=== PATIENT | female | born 1990 | race Caucasian/White ===

== ENCOUNTER → 2020-02-24 12:46 | Outpatient (CLI) | payer OTHER, SELFPAY ==
--- NOTE | ~2020-02-24 | US_ITS ---
EXAMINATION: US OB <= 14 weeks fetus DATE: 02/24/2020 13:14 INDICATION: Establish dating of during first trimester TECHNIQUE: Real-time pelvic ultrasound utilizing both a transvaginal and transabdominal probe was pe rformed. The interpreting radiologist was not present for the study. COMPARISON: None. FINDINGS: The uterus measures 11.0 x 5.4 x 7.6 cm. There is an intrauterine gestational sac. A yolk sac and fe austin pole are identified. The crown rump length measures 1.3 cm, which correlates with an estimated ge stational age of 7 weeks and 4 days. heart motion is identified measuring 161 beats per minute (bpm) by M-mode Doppler. The right ovary measures 2.7 x 2.3 x 3.1 cm. The left ovary measures 3.6 x 2.9 x 3.4 cm. 1.8 cm thick -walled centrally anechoic corpus luteum cyst in the left ovary. There is no free fluid in the pelvis . IMPRESSION: 1. Single living fetus with heart rate of 161 bpm. 2. Gestational age by ultrasound of 7 weeks 4 day(s) +/- 5 day(s) with ultrasound estimated date of delivery (CINDY) of 10/08/2020. Reviewed, dictated and finalized at location A. ITAL ADMITTING CLERK IMPRESSION: 1. Single living fetus with heart rate of 161 bpm. 2. Gestational age by ultrasound of 7 weeks 4 day(s) +/- 5 day(s) with ultraso und estimated date of delivery (CINDY) of 10/08/2020.
== END ==
PROVIDERS: Visit Provider Obstetrics & Gynecology Gynecology
DX: O26.841 Uterine size-date discrepancy, first trimester (principal); Z3A.01 Less than 8 weeks gestation of pregnancy
CPT/HCPCS: 76801

== ENCOUNTER → 2020-05-10 10:32 | Outpatient (CLI) | payer OTHER, SELFPAY ==
--- NOTE | ~2020-05-10 | US_ITS ---
US OB >= 14 weeks Fetus DATE: 05/10/2020 11:44 INDICATION: anatomy screen TECHNIQUE: Real-time imaging and Doppler analysis COMPARISON: 02/24/2020 obstetrical ultrasound examination FINDINGS: Live ricketts intrauterine gestation in vertex presentation. Posterior placenta, lower mar gin 5 cm above the internal os. Subjectively normal amount of amniotic fluid. cerebral ventricles are normal size. The cerebellum appears normal. Normal nuchal fold. N ormal upper lip. Normal spine. The diaphragm is intact. heart rate of 144 bpm. 4 ch cameron heart with normal outflow tracts. Fluid is demonstrated in the stomach and ur inary bladder. kidneys appear normal. Three-vessel cord with normal insertion at abdomina l wall. extremities are unremarkable. Biparietal diameter 4.36 cm; 19 weeks 1 day Head circumference 15.95 cm; 18 weeks 6 days Abdominal circumference 13.07 cm; 18 weeks 4 days Femur length 2.63 cm; 18 weeks 0 days Composite age by Edmonds formula on the current examination would be 18 weeks 5 days +/- 1 week 2 da ys with CINDY of 10/06/2020, which is close to the CINDY of 10/08/2020 from the 02/24/2020 obstetrical ultr asound examination. Estimated weight: 237.1 +/- 35.6 g Estimated weight-GP: 42.1% Head circumference/abdominal hull molder was 1.22, within normal range of 1.09-1.26 Femur length/head circumference 16.47, within normal range of 16.01-18.21. IMPRESSION: Normal anatomy screen and normal interval growth since 02/24/2020 Reviewed, dictated and finalized at Location A. Reviewed, dictated and finalized at location A. WINDING MACHINE OPERATOR IMPRESSION: Normal anatomy screen and normal interval growth since 2019
== END ==
PROVIDERS: Visit Provider Obstetrics & Gynecology Gynecology
DX: Z34.92 Encounter for supervision of normal pregnancy, unspecified, second trimester (principal); Z3A.18 18 weeks gestation of pregnancy
CPT/HCPCS: 76805

== ENCOUNTER 2020-07-11 19:52 | Observation (INO) | payer OTHER, SELFPAY ==
[2020-07-11] VITALS (16 sets, daily range): BP systolic 127–178; BP diastolic 79–110; PULSE 80–99; TEMP 36.6; BMI 25.4
--- NOTE | ~2020-07-11 | US_ITS ---
EXAMINATION: US OB follow up, US umbilical doppler DATE: 07/12/2020 08:04 INDICATION: Gestational hypertension. Assess growth and estimated weight at the junction of the second and third trimesters of . TECHNIQUE: Real-time ultrasound of the pelvis was performed. The interpreting radiologist was not pre sent for the study. COMPARISON: None. FINDINGS: There is a single living fetus in breech presentation. The placenta is posterior. heart rate i s 139 beats per minute (bpm). The amniotic fluid index is 11.4 cm, which is normal (5th%-95%: 9.5-22. 6 cm at 27 weeks estimated gestational age). The umbilical artery demonstrates a peak systolic and diastolic velocity ratio of 3.3 at the fetus, 1 .8 in the mid cord and 2.2 near the placenta with mean of 2.4 (5th%-95%: 2.4-4.8 at 27 weeks). The following biometric data were obtained: BPD: 6.9 cm -> 27 weeks 4 days Head circumference: 26.3 cm -> 28 weeks 4 days Abdominal circumference: 22.3 cm -> 26 weeks 5 days Femur length: 5.0 cm -> 26 weeks 6 days These measurements are concordant. Head circumference to abdominal circumference ratio: 1.18 (normal range 1.04-1.22). Estimated weight: 1016 g (+/-) 152 g. or 2 lbs. 4 oz. (+/-) 5 oz. IMPRESSION: 1. Single living fetus in breech presentation with heart rate of 139 bpm. 2. Normal amniotic fluid index of 11.4 cm. 3. Low normal mean umbilical arterial peak systolic to diastolic velocity ratio of 2.4. 4. Estimated weight is 23rd percentile by Hadlock criteria when 10/08/2020 is used as the estima donta date of delivery (CINDY). Please correlate with clinical information or earlier ultrasounds for mos t accurate CINDY. Reviewed, dictated and finalized at location A. IMPRESSION: 1. Single living fetus in breech presentation with heart rate of 139 bpm. 2. Normal amniotic fluid index of 11.4 cm. 3. Low normal mean umbilical arterial peak systolic to diastolic velocity ratio of 2.4. 4. Estimated weight is 23rd percentile by Hadlock criteria when 10/08/2020 is used as the estimated date of delivery (CINDY). Please correlate with clinica l information or earlier ultrasounds for most accurate CINDY.
[2020-07-11 14:59] LABS: Basophils Percent Auto 0.3 % (0.2-1.2); Eosinophils Absolute Auto 0.1 K/mm3 (0-0.3); Eosinophils Percent Auto 0.6 % (0-4.4); Hematocrit 35.1 % (37.0-47.0); Immature Granulocyte Absolute 0.09 K/mm3 (0.00-0.031); Immature Granulocyte Percent A 0.9 % (0-0.5); Lymphocytes Absolute Auto 1.38 K/mm3 (0.9-3.2); Lymphocytes Percent Auto 14.5 % (18.3-44.2); Mean Corpuscular HGB Conc 34.2 g/dl (32-36); Mean Corpuscular Hemoglobin 31.2 pg (26-34); Mean Corpuscular Volume 91.2 fl (80-100); Mean Platelet Volume 11.1 fl (7.4-10.4); Monocytes Absolute Auto 0.8 K/mm3 (0.1-0.6); Monocytes Percent Auto 8.4 % (2.6-8.5); Neutrophils Absolute Auto 7.2 K/mm3 (1.3-6.7); Neutrophils Percent Auto 75.3 % (45.5-73.1); Platelet Count Result 177 k/mm3 (150-375); Red Blood Count 3.85 M/mm3 (4.2-5.4); Red Cell Distribution Width 11.9 % (11.5-14.5); White Blood Count 9.5 K/mm3 (4.5-10.0)
[2020-07-11 15:01] LABS: Add Urine Microscopic? NO; Appearance Urine Clear (Clear); Bilirubin Urine Negative (Negative); Blood Urine Negative (Negative); Color Urine Straw (Yellow); Glucose Urine UA Negative (Negative); Ketones Urine Negative (Negative); Leukocyte Esterase Ur Negative LEU/UL (NEGATIVE); Nitrate Urine Negative (Negative); Protein Urine Negative (Negative); Urobilinogen Urine Negative mg/dL (<2.0)
[2020-07-11 15:11] LABS: Alanine Aminotransferase 28 U/L (4-35); Albumin Level 3.7 g/dL (3.5-5.1); Alkaline Phosphatase 95 U/L (38-126); Anion Gap 6 mmol/L (8-16); Aspartate Amino Transferase 30 U/L (14-36); Bilirubin,Total 0.3 mg/dL (0.2-1.3); Blood Urea Nitrogen 7 mg/dL (7-17); Calcium 8.9 mg/dL (8.4-10.2); Carbon Dioxide 26 mmol/L (22-30); Chloride 103 mmol/L (98-107); Estimated Glomerular Filt Rate > 60; Glucose 83 mg/dL (65-105); Potassium 3.2 mmol/L (3.4-5.0); Sodium 135 mmol/L (137-145); Uric Acid 3.3 mg/dL (2.5-7.5)
[2020-07-11 15:13] LABS: Creatinine Urine 20.8 mg/dL; Total Protein Urine Random 18 mg/dL; Ur Ttl Prot Creatinine Ratio 0.87 mg/mg (0-0.20)
[2020-07-11 15:14] LABS: Specific Grav Ur 1.004 (1.001-1.035)
--- NOTE | 2020-07-11 15:30 | PC.NURSE ---
Dr Edwards notifed of BP's and lab results, orders received.
[2020-07-11] MEDS: LABETALOL HCL 100 MG TABLET PO ×2 (15:40→17:16)
[2020-07-11] MEDS: LABETALOL HCL 100 MG TABLET 200 MG PO (21:28)
[2020-07-12 01:11] VITALS: BP 138/88; PULSE 77
[2020-07-12 03:00] VITALS: BP 142/97; PULSE 84
[2020-07-12 05:30] VITALS: PULSE 86
[2020-07-12] MEDS: LABETALOL HCL 100 MG TABLET 200 MG PO (05:30)
[2020-07-12 05:31] VITALS: BP 133/80; PULSE 86
[2020-07-12 07:19] VITALS: BP 131/87; PULSE 81
--- NOTE | 2020-07-12 07:38 | WPDOBADMIT ---
Obstetrics - Admit Note Admission Note: record reviewed. No pertinent additions to the history and/or any subsequent changes in the physical findings that are not consistent with the expected course of the were found. Additions to the history and/or subsequent changes in the physical findings follow. Here from office yesterday with elevated BP at 28 wks. Headache is her usual migraine. No PIH Sx BP 127-178/79-110 (since 2199 med 127-142/79-97 Blood tests ok. Pr/Cr 0.87 a/p 1. IUP 28 wks 2. Gest. HTN most likely preeclampsia -plan Labetalol 200mg q 8 and obs closely with daily calls -u/s now for growth, STEPHANIE, and dopplers -finish 24 hour urine -off work with minimal activity -q week visits and 2x week NST -DC home if u/s ok
[2020-07-12 07:59] VITALS: BP 131/87; PULSE 81
== END 2020-07-12 09:20 | disposition home or self-care (01) ==
LOC: ANHOBOP 19:52 → ANHOBPP 19:52
PROVIDERS: Admitting Provider Obstetrics & Gynecology Gynecology; PCP Internal Medicine Geriatric Medicine; Visit Provider Obstetrics & Gynecology Gynecology
DX: O16.3 Unspecified maternal hypertension, third trimester (principal); O99.891 Other specified diseases and conditions complicating pregnancy; G43.909 Migraine, unspecified, not intractable, without status migrainosus; Z3A.28 28 weeks gestation of pregnancy
CPT/HCPCS: 36415; 59025; 76816; 76820; 80053; 81003; 82570; 84156; 84550; 85025; A9270; G0378

== ENCOUNTER 2020-07-12 14:54 | Outpatient (NON) | payer OTHER, SELFPAY ==
[2020-07-12 15:22] VITALS: BMI 24.7
[2020-07-12 16:23] LABS: Collection Time Urine 24 HOURS
[2020-07-12 16:24] LABS: Patient Weight 139 Lbs
[2020-07-12 16:58] LABS: Total Volume 24 Hour Urine 2450 ml
[2020-07-12 17:06] LABS: Creatinine Clearance Urine 136.2 ml/min (75-125); Creatinine Urine 38.2 mg/dL; Total Protein Urine Random 16 mg/dL
[2020-07-12 17:11] LABS: Total Protein Urine 24 Hr 392 MG/DAY (28-141)
== END 2020-07-12 14:55 ==
PROVIDERS: PCP Internal Medicine Geriatric Medicine; Visit Provider Obstetrics & Gynecology Gynecology
DX: Z34.90 Encounter for supervision of normal pregnancy, unspecified, unspecified trimester (principal); Z3A.00 Weeks of gestation of pregnancy not specified
CPT/HCPCS: 81050; 82575; 84156

== ENCOUNTER → 2020-07-28 12:53 | Outpatient (CLI) | payer OTHER, SELFPAY ==
--- NOTE | ~2020-07-28 | US_ITS ---
US OB follow up, US umbilical doppler DATE: 07/28/2020 13:35 INDICATION: Preeclampsia TECHNIQUE: Real-time imaging and Doppler analysis COMPARISON: 07/12/2020 obstetrical ultrasound and ultrasound umbilical Doppler 02/24/2020 obstetrical ultrasound FINDINGS: Live ricketts intrauterine gestation, fetus in longitudinal lie and breech presentation. Posterior placenta, lower margin well above the internal os. Amniotic fluid index measures 9.5 cm, at the lower margin of the 5th percentile of 9.2 cm-95th percen tile 23.1 cm. Three-vessel umbilical cord. Four-chamber heart. Biparietal diameter 7.34 cm; 29 weeks 3 days Head circumference 27.69 cm; 30 weeks 2 days Abdominal circumference 24.86 cm; 29 weeks 1 day Femur length 5.57 cm; 29 weeks 2 days Composite age by Castile formula based on the current measurements would be 29 weeks 4 days +/- 2 we eks, with CINDY of 10/09/2020, compared to 10/08/2020 by LMP. Estimated weight is 1371 +/- 206 g. Estimated weight-GP: 24.06% Femur length/BPD 75.91, within normal range of 71.0-87.0 Head circumference/abdominal circumference 1.11, within normal range of 0.98-1.20 Femur length/abdominal circumference 22.42, within normal range of 20.00-24.00 Femur length/head circumference 20.13, within normal range of 19.37-21.14. Umbilical artery systolic/diastolic ratio measurements are 2.0 near the fetus, 2.3 in the mid umbilic al artery and 1.7 m the placenta, compared to 3.3, 1.8 and 2.2, respectively, on 07/12/2020. Mean systolic/diastolic ratio is 2.0, with 5th percentile of 2.3 and 95th percentile of 4.3. IMPRESSION: Normal interval growth Estimated weight 1371 +/- 206 g Umbilical artery mean systolic/diastolic ratio: 2.0 (systolic/diastolic ratio 5th percentile-95th percentile: 2.3-4.3) Reviewed, dictated and finalized at Location [facility]. Reviewed, dictated and finalized at location A. IMPRESSION: Normal interval growth Estimated weight 1371 +/- 206 g Umbilical artery mean systolic/diastolic ratio: 2.0 (systolic/diastolic ratio 5th percentile-95th percentile: 2.3-4.3)
== END ==
PROVIDERS: Visit Provider Obstetrics & Gynecology Gynecology
DX: O14.93 Unspecified pre-eclampsia, third trimester (principal); Z3A.29 29 weeks gestation of pregnancy
CPT/HCPCS: 76816; 76820

== ENCOUNTER 2020-08-12 13:32 | Outpatient (CLI) | payer OTHER, SELFPAY ==
[2020-08-12] VITALS (14 sets, daily range): BP systolic 137–150; BP diastolic 86–101; PULSE 80–99
--- NOTE | ~2020-08-12 | US_ITS ---
EXAMINATION: US OB BPP wo non-stress DATE: 08/12/2020 16:12 INDICATION: Preeclampsia. cardiac decelerations on in office nonstress test. TECHNIQUE: Real-time pelvic ultrasound was performed. The interpreting radiologist was not present fo r the study. COMPARISON: 07/28/2020 FINDINGS: There is a single living fetus in vertex presentation. The placenta is right fundal. heart rat e is 134 beats per minute (bpm). Biophysical profile performed by the technologist: breathing (30 sec sustained breathing in 30 minutes): 2 out of 2 movement (3 gross body movements in 30 minutes): 2 out of 2 tone (one episode of twldumy-pzypawcir-updujod limb movement): 2 out of 2 Amniotic fluid pocket (2 cm): 2 out of 2 Total score: 8 out of 8 IMPRESSION: 1. Single living fetus in vertex presentation with heart rate of 134 bpm. 2. Biophysical profile 8 out of 8. Reviewed, dictated and finalized at location A.
[2020-08-12] MEDS: NIFEdipine 30 MG TAB.ER.24 PO (15:16)
[2020-08-12 15:35] LABS: Basophils Percent Auto 0.2 % (0.2-1.2); Eosinophils Absolute Auto 0.1 K/mm3 (0-0.3); Hematocrit 34.7 % (37.0-47.0); Immature Granulocyte Absolute 0.08 K/mm3 (0.00-0.031); Lymphocytes Absolute Auto 1.28 K/mm3 (0.9-3.2); Lymphocytes Percent Auto 15.8 % (18.3-44.2); Mean Corpuscular HGB Conc 34.6 g/dl (32-36); Mean Corpuscular Hemoglobin 31.3 pg (26-34); Mean Corpuscular Volume 90.6 fl (80-100); Mean Platelet Volume 12.7 fl (7.4-10.4); Monocytes Absolute Auto 0.7 K/mm3 (0.1-0.6); Monocytes Percent Auto 8.7 % (2.6-8.5); Neutrophils Absolute Auto 5.9 K/mm3 (1.3-6.7); Neutrophils Percent Auto 73.3 % (45.5-73.1); Platelet Count Result 135 k/mm3 (150-375); Red Blood Count 3.83 M/mm3 (4.2-5.4); Red Cell Distribution Width 11.9 % (11.5-14.5); White Blood Count 8.1 K/mm3 (4.5-10.0)
[2020-08-12 15:47] LABS: Alanine Aminotransferase 23 U/L (4-35); Albumin Level 3.4 g/dL (3.5-5.1); Alkaline Phosphatase 122 U/L (38-126); Anion Gap 7 mmol/L (8-16); Aspartate Amino Transferase 31 U/L (14-36); Bilirubin,Total 0.2 mg/dL (0.2-1.3); Blood Urea Nitrogen 6 mg/dL (7-17); Calcium 8.9 mg/dL (8.4-10.2); Carbon Dioxide 22 mmol/L (22-30); Chloride 107 mmol/L (98-107); Estimated Glomerular Filt Rate > 60; Glucose 118 mg/dL (65-105); Lactate Dehydrogenase 343 U/L (313-618); Potassium 3.8 mmol/L (3.4-5.0); Sodium 136 mmol/L (137-145); Uric Acid 4.7 mg/dL (2.5-7.5)
[2020-08-12 15:56] LABS: Add Urine Microscopic? NO; Appearance Urine Clear (Clear); Bilirubin Urine Negative (Negative); Blood Urine Negative (Negative); Color Urine Yellow (Yellow); Glucose Urine UA Negative (Negative); Ketones Urine Negative (Negative); Leukocyte Esterase Ur Negative LEU/UL (Negative); Nitrate Urine Negative (Negative); Protein Urine Negative (Negative); Specific Grav Ur 1.009 (1.001-1.035); Urobilinogen Urine Negative mg/dL (<2.0)
[2020-08-12 16:01] LABS: Creatinine Urine 57.7 mg/dL; Total Protein Urine Random 15 mg/dL; Ur Ttl Prot Creatinine Ratio 0.26 mg/mg (0-0.20)
[2020-08-12] MEDS: LABETALOL HCL 100 MG TABLET 200 MG PO (17:12)
== END 2020-08-12 19:51 | disposition home or self-care (01) ==
LOC: ANHOBOP 15:04 → ANHLDR 15:04
PROVIDERS: Visit Provider Obstetrics & Gynecology
DX: O14.90 Unspecified pre-eclampsia, unspecified trimester (principal); Z3A.00 Weeks of gestation of pregnancy not specified
CPT/HCPCS: 36415; 59025; 76819; 80053; 81003; 82570; 83615; 84156; 84550; 85025; 99199; A9270

== ENCOUNTER 2020-08-30 18:35 | Observation (INO) | payer OTHER, SELFPAY ==
[2020-08-30] VITALS (16 sets, daily range): BP systolic 126–172; BP diastolic 80–109; PULSE 75–92; TEMP 36.6
[2020-08-30] MEDS: LABETALOL HCL 100 MG TABLET 200 MG PO (17:03)
[2020-08-30 17:18] LABS: Basophils Percent Auto 0.2 % (0.2-1.2); Eosinophils Percent Auto 0.2 % (0-4.4); Hematocrit 36.2 % (37.0-47.0); Hemoglobin 12.2 g/dL (12.0-15.0); Immature Granulocyte Absolute 0.05 K/mm3 (0.00-0.031); Immature Granulocyte Percent A 0.6 % (0-0.5); Immature Platelet Fraction Pct 19.8 % (0.9-11.2); Lymphocytes Absolute Auto 1.28 K/mm3 (0.9-3.2); Lymphocytes Percent Auto 14.4 % (18.3-44.2); Mean Corpuscular HGB Conc 33.7 g/dl (32-36); Mean Corpuscular Hemoglobin 30.3 pg (26-34); Mean Platelet Volume 13.2 fl (7.4-10.4); Monocytes Absolute Auto 0.7 K/mm3 (0.1-0.6); Monocytes Percent Auto 7.4 % (2.6-8.5); Neutrophils Absolute Auto 6.9 K/mm3 (1.3-6.7); Neutrophils Percent Auto 77.2 % (45.5-73.1); Platelet Count Result 137 k/mm3 (150-375); Red Blood Count 4.02 M/mm3 (4.2-5.4); Red Cell Distribution Width 12.4 % (11.5-14.5); White Blood Count 8.9 K/mm3 (4.5-10.0)
[2020-08-30] MEDS: LABETALOL HCL 100 MG TABLET PO (17:31)
[2020-08-30 17:33] LABS: Alanine Aminotransferase 30 U/L (4-35); Albumin Level 3.6 g/dL (3.5-5.1); Alkaline Phosphatase 160 U/L (38-126); Anion Gap 5 mmol/L (8-16); Aspartate Amino Transferase 41 U/L (14-36); Bilirubin,Total 0.2 mg/dL (0.2-1.3); Blood Urea Nitrogen 8 mg/dL (7-17); Calcium 9.5 mg/dL (8.4-10.2); Carbon Dioxide 22 mmol/L (22-30); Chloride 108 mmol/L (98-107); Estimated Glomerular Filt Rate > 60; Glucose 81 mg/dL (65-105); Sodium 135 mmol/L (137-145); Uric Acid 5.9 mg/dL (2.5-7.5)
--- NOTE | 2020-08-30 18:20 | PC.NURSE ---
Pt denies any headache, blurred vision, abdominal pain.
--- NOTE | 2020-08-30 18:30 | PC.NURSE ---
Spoke with Dr. Edwards. Blood pressures reported. Dr. Edwards advised pt having contraction not felt. NST does not have 15x15 accels pt does feel movement. Orders received.
--- NOTE | 2020-08-30 19:00 | OBADM ---
This patient, Rosibel Jimneez, admitted to the OB room OB Post 116 for observation. Patient/family oriented to hospital policies and general routines including ID bracelet, bed and alarms, visiting hours, pain management, procedures, bathroom and other care routines, personal items, smoking policy, room service/diet, and visiting hours. Patient/Family are encouraged to report perceived risks to care and to ask questions if they do not understand what they are told or what they should do.
[2020-08-30] MEDS: hydrOXYzine pamoate 25 MG CAPSULE PO (19:14)
[2020-08-30] MEDS: NIFEdipine 30 MG TAB.ER.24 PO (19:15)
--- NOTE | 2020-08-30 22:27 | PC.NURSE ---
SEE OBIX DOCUMENTATION.
[2020-08-31] VITALS: BP 130/72; PULSE 86; TEMP 36.9
[2020-08-31 04:24] VITALS: BP 119/67; PULSE 86
--- NOTE | 2020-08-31 04:25 | PC.NURSE ---
Pt awake at this time. resting quietly. Has been sleeping. EFHM applied. Lab drawn. Frequent movement noted.
[2020-08-31 04:58] LABS: Basophils Percent Auto 0.4 % (0.2-1.2); Eosinophils Absolute Auto 0.1 K/mm3 (0-0.3); Eosinophils Percent Auto 0.7 % (0-4.4); Hematocrit 32.1 % (37.0-47.0); Hemoglobin 11.1 g/dL (12.0-15.0); Immature Granulocyte Absolute 0.06 K/mm3 (0.00-0.031); Immature Granulocyte Percent A 0.7 % (0-0.5); Immature Platelet Fraction Pct 19.7 % (0.9-11.2); Lymphocytes Absolute Auto 1.75 K/mm3 (0.9-3.2); Lymphocytes Percent Auto 20.6 % (18.3-44.2); Mean Corpuscular HGB Conc 34.6 g/dl (32-36); Mean Corpuscular Hemoglobin 30.6 pg (26-34); Mean Corpuscular Volume 88.4 fl (80-100); Mean Platelet Volume 13.8 fl (7.4-10.4); Monocytes Absolute Auto 0.7 K/mm3 (0.1-0.6); Monocytes Percent Auto 8.1 % (2.6-8.5); Neutrophils Absolute Auto 5.9 K/mm3 (1.3-6.7); Neutrophils Percent Auto 69.5 % (45.5-73.1); Platelet Count Result 113 k/mm3 (150-375); Red Blood Count 3.63 M/mm3 (4.2-5.4); Red Cell Distribution Width 12.3 % (11.5-14.5); White Blood Count 8.5 K/mm3 (4.5-10.0)
[2020-08-31 05:13] LABS: Alanine Aminotransferase 26 U/L (4-35); Alkaline Phosphatase 137 U/L (38-126); Anion Gap 5 mmol/L (8-16); Aspartate Amino Transferase 36 U/L (14-36); Bilirubin,Total 0.1 mg/dL (0.2-1.3); Blood Urea Nitrogen 9 mg/dL (7-17); Calcium 8.8 mg/dL (8.4-10.2); Carbon Dioxide 20 mmol/L (22-30); Chloride 110 mmol/L (98-107); Estimated Glomerular Filt Rate > 60; Glucose 86 mg/dL (65-105); Potassium 3.6 mmol/L (3.4-5.0); Sodium 135 mmol/L (137-145)
[2020-08-31 05:28] LABS: Uric Acid 5.9 mg/dL (2.5-7.5)
[2020-08-31] MEDS: hydrOXYzine pamoate 25 MG CAPSULE PO (06:21)
[2020-08-31 06:22] VITALS: PULSE 98
[2020-08-31] MEDS: LABETALOL HCL 100 MG TABLET 200 MG PO ×2 (06:22)
[2020-08-31 07:22] VITALS: BP 135/84; PULSE 90
--- NOTE | 2020-08-31 08:17 | WPDOBADMIT ---
Obstetrics - Admit Note Admission Note: record reviewed. No pertinent additions to the history and/or any subsequent changes in the physical findings that are not consistent with the expected course of the were found. Additions to the history and/or subsequent changes in the physical findings follow. admitted @ 34 weeks with known history of Preeclampsia. Patient had elevated blood pressures in office repeat PIH labs showed elevated AST. and change in platelets. recent ultrsound with normal dopplers. Patient received adjustment to procardial now 30 xL twice a day and steroids.
[2020-08-31] MEDS: BETAMETHASONE SOD PHOS/ACETATE 30 MG/5 ML VIAL 12 MG IM (08:33)
== END 2020-08-31 08:35 | disposition home or self-care (01) ==
LOC: ANHOBOP 19:30 → ANHOBPP 08-31 08:15
PROVIDERS: Admitting Provider Obstetrics & Gynecology Gynecology; PCP Internal Medicine Geriatric Medicine; Visit Provider Obstetrics & Gynecology
DX: O13.3 Gestational [pregnancy-induced] hypertension without significant proteinuria, third trimester (principal); Z3A.34 34 weeks gestation of pregnancy
CPT/HCPCS: 36415; 80053; 84550; 85025; 85055; 96372; A9270; G0378; G0379; J0702

== ENCOUNTER 2020-09-01 08:28 | Outpatient (CLI) | payer OTHER, SELFPAY ==
[2020-09-01] MEDS: BETAMETHASONE SOD PHOS/ACETATE 30 MG/5 ML VIAL 12 MG IM (08:49)
[2020-09-01 08:59] LABS: Hematocrit 33.7 % (37.0-47.0); Hemoglobin 11.3 g/dL (12.0-15.0); Mean Corpuscular HGB Conc 33.5 g/dl (32-36); Mean Corpuscular Hemoglobin 30.3 pg (26-34); Mean Corpuscular Volume 90.3 fl (80-100); Mean Platelet Volume 13.4 fl (7.4-10.4); Platelet Count Result 120 k/mm3 (150-375); Red Blood Count 3.73 M/mm3 (4.2-5.4); Red Cell Distribution Width 12.5 % (11.5-14.5); White Blood Count 14.8 K/mm3 (4.5-10.0)
[2020-09-01 09:12] LABS: Alanine Aminotransferase 29 U/L (4-35); Albumin Level 3.4 g/dL (3.5-5.1); Alkaline Phosphatase 148 U/L (38-126); Anion Gap 7 mmol/L (8-16); Aspartate Amino Transferase 35 U/L (14-36); Bilirubin,Total < 0.1 mg/dL (0.2-1.3); Blood Urea Nitrogen 9 mg/dL (7-17); Carbon Dioxide 18 mmol/L (22-30); Chloride 110 mmol/L (98-107); Estimated Glomerular Filt Rate > 60; Glucose 148 mg/dL (65-105); Potassium 3.4 mmol/L (3.4-5.0); Sodium 135 mmol/L (137-145); Uric Acid 5.3 mg/dL (2.5-7.5)
== END 2020-09-01 08:56 | disposition home or self-care (01) ==
LOC: ANHOBOP 08:34 → ANHOBPP 08:35
PROVIDERS: PCP Internal Medicine Geriatric Medicine; Visit Provider Obstetrics & Gynecology Gynecology
DX: Z29.13 Encounter for prophylactic Rho(D) immune globulin (principal); O36.19 Maternal care for other isoimmunization; Z3A.35 35 weeks gestation of pregnancy
CPT/HCPCS: 36415; 80053; 84550; 85027; 96372; 99199; J0702

== ENCOUNTER 2020-09-02 17:04 | Observation (INO) | payer OTHER, SELFPAY ==
[2020-09-02] VITALS (7 sets, daily range): BP systolic 143–155; BP diastolic 82–99; PULSE 75–89; RESP 18; TEMP 36.5; BMI 26.6
--- NOTE | ~2020-09-02 | US_ITS ---
EXAMINATION: US OB limited w BPP, US umbilical doppler DATE: 09/03/2020 10:37 INDICATION: Decreased variability of the heart during third trimester TECHNIQUE: Real-time pelvic ultrasound was performed. The interpreting radiologist was not present fo r the study. COMPARISON: 09/03/2019 FINDINGS: There is a single living fetus in vertex presentation. The placenta is posterior. heart rate i s 139 beats per minute (bpm). The umbilical artery demonstrates a peak systolic and diastolic velocity ratio of 1.8-2.4 at the fetu s, 2.0-2.2 in the mid cord and 1.7-2.6 near the placenta (5th%-95%: 2.03-3.40 at 35 weeks). Biophysical profile performed by the technologist: breathing (30 sec sustained breathing in 30 minutes): 2 out of 2 movement (3 gross body movements in 30 minutes): 2 out of 2 tone (one episode of ouwshrw-vfaqltzwm-lxiphyf limb movement): 2 out of 2 Amniotic fluid pocket (2 cm): 2 out of 2 Total score: 8 out of 8 IMPRESSION: 1. Single living fetus in vertex presentation with heart rate of 139 bpm. 2. Biophysical profile 8 out of 8. 3. Low normal umbilical artery peak systolic to diastolic ratio with mean of 2.1. Reviewed, dictated and finalized at location A. IMPRESSION: 1. Single living fetus in vertex presentation with heart rate of 139 bpm. 2. Biophysical profile 8 out of 8. 3. Low normal umbilical artery peak systolic to diastolic ratio with mean of 2. 1.
--- NOTE | 2020-09-02 20:00 | OBADM ---
This patient, Rosibel Jimenez, admitted to the OB room OB Post 117 for observation for extended monitoring. Patient/family oriented to hospital policies and general routines including ID bracelet, bed and alarms, visiting hours, pain management, procedures, bathroom and other care routines, personal items, smoking policy, room service/diet, and visiting hours. Patient/Family are encouraged to report perceived risks to care and to ask questions if they do not understand what they are told or what they should do.
[2020-09-02] MEDS: NIFEdipine 30 MG TAB.ER.24 PO (20:07)
[2020-09-03] VITALS (17 sets, daily range): BP systolic 123–155; BP diastolic 75–98; PULSE 75–94; RESP 16–20; TEMP 36.6–36.8
--- NOTE | 2020-09-03 | PC.NURSE ---
Pt took home dose of Labetolol 200mg po.
[2020-09-03] MEDS: ZOLPIDEM TARTRATE (*CRX) 5 MG TABLET PO ×2 (01:02→22:55)
[2020-09-03] MEDS: LABETALOL HCL 100 MG TABLET 200 MG PO ×3 (05:54→18:02)
[2020-09-03] MEDS: NIFEdipine 30 MG TAB.ER.24 PO (08:39)
[2020-09-03] MEDS: DEXTROSE 5%/LACTATED RINGERS 1,000 ML 125 ML IV CONT (08:54)
--- NOTE | 2020-09-03 09:51 | PC.NURSE ---
pt to ultrasound per wheelchair.
--- NOTE | 2020-09-03 10:40 | PC.NURSE ---
pt returned from ultrasound per wheelchair.
--- NOTE | 2020-09-03 18:57 | WPDOBADMIT ---
Obstetrics - Admit Note Admission Note: record reviewed. No pertinent additions to the history and/or any subsequent changes in the physical findings that are not consistent with the expected course of the were found. Additions to the history and/or subsequent changes in the physical findings follow. Patient presented for NST and variables and minimal variability noted. BPP /8 . Patient at 35 weeks with known history of Preeclampsia. Patient had elevated blood pressures. ultrsound with normal dopplers and STEPHANIE. Repeat BPP 11/20. Patient received adjustment to procardial now 30 xL AM and 60 XL pm steroids.
[2020-09-03] MEDS: NIFEdipine 30 MG TAB.ER.24 60 MG PO (20:49)
--- NOTE | 2020-09-03 22:22 | PC.NURSE ---
Pt moved to room 113 at her request so can come up and stay tonight with her.
[2020-09-04] VITALS (13 sets, daily range): BP systolic 117–158; BP diastolic 73–101; PULSE 85–97; RESP 18; TEMP 36.8
[2020-09-04] MEDS: LABETALOL HCL 100 MG TABLET 200 MG PO ×3 (00:04→12:03)
[2020-09-04] MEDS: NIFEdipine 30 MG TAB.ER.24 PO (08:56)
--- NOTE | 2020-09-04 12:52 | PM.OBPNVD ---
OB - PN: Subj Subjective Date/time seen: 09/04/20 12:52doing okay denies headache or vision changes tolerating medications OB - PN A/P Assessment and Plan (1) Pre-eclampsia affecting , antepartum: Code(s): O14.90 - Unspecified pre-eclampsia, unspecified trimester Status: Acute Assessment and Plan: will d/c home with continued labetalol and procardia (2) heart deceleration: Status: Acute Assessment and Plan: resolved Time Spent With Patient Time: Total time spent is greater than 50% in coordination of care (as documented) at patient's floor/unit and/or counseling patient: Exam Narrative: Exam Narrative: abdomen soft and gravid
--- NOTE | 2020-09-22 11:33 | PM.OBTRLD ---
OB - Triage/Final Diagnosis Visit Information Comments/Additional reasons for admission: I have assessed the risk for this patient, Rosibel Jimenez, and determined that she would benefit from observation care. Final Diagnosis (1) Pre-eclampsia affecting , antepartum: Code(s): O14.90 - Unspecified pre-eclampsia, unspecified trimester Status: Acute (2) heart deceleration: Status: Acute
== END 2020-09-04 12:40 | disposition home or self-care (01) ==
PROVIDERS: Admitting Provider Obstetrics & Gynecology; PCP Internal Medicine Geriatric Medicine; Visit Provider Obstetrics & Gynecology
DX: O14.93 Unspecified pre-eclampsia, third trimester (principal); Z3A.35 35 weeks gestation of pregnancy
CPT/HCPCS: 76815; 76819; 76820; 96360; 96361; A9270; G0378; G0379; J7121

== ENCOUNTER 2020-09-06 16:05 | Outpatient (RCR) | payer OTHER, SELFPAY ==
[2020-07-29 15:47] VITALS: BP 149/90; PULSE 70
[2020-07-29 15:53] VITALS: PULSE 70
[2020-07-29] MEDS: LABETALOL HCL 100 MG TABLET 200 MG PO (15:53)
[2020-08-05 15:21] VITALS: BP 144/91; PULSE 85
--- NOTE | 2020-09-02 17:08 | PC.NURSE ---
BPs 157/96, 150/97, 147/91, 158/94.
--- NOTE | 2020-09-02 17:53 | PC.NURSE ---
Called Dr. Adhikari with pt status. Informed of nonreactive NST and BPs. Pt due for labetalol now. Have pt take home labetalol now and do BPP. Continue to monitor.
[2020-09-02 19:25] VITALS: BP 151/96; PULSE 85
--- NOTE | 2020-09-02 19:35 | PC.NURSE ---
Pt switched to OBS status per orders. See [id number] for further care documentation.
--- NOTE | ~2020-09-06 | US_ITS ---
EXAMINATION: US OB BPP wo non-stress DATE: 09/06/2020 16:24 INDICATION: Hypertension. Nonreactive NST. TECHNIQUE: Real-time pelvic ultrasound was performed. The interpreting radiologist was not present fo r the study. COMPARISON: None. FINDINGS: There is a single living fetus in vertex presentation. The placenta is posterior. cardiac acti vity and movement are demonstrated. heart rate is 131 beats per minute (bpm). Biophysical profile performed by the technologist: breathing (30 sec sustained breathing in 30 minutes): 2 out of 2 movement (3 gross body movements in 30 minutes): 2 out of 2 tone (one episode of yaljutk-yduaxqtiv-yoxuaye limb movement): 2 out of 2 Amniotic fluid pocket (2 cm): 2 out of 2 Total score: 8 out of 8 IMPRESSION: 1. Single living intrauterine in vertex presentation with heart rate of 131 bpm. 2. Normal placenta. 3. Biophysical profile 8 out of 8. Reviewed, dictated and finalized at location A.
--- NOTE | ~2020-09-06 | US_ITS ---
EXAMINATION: US OB BPP wo non-stress DATE: 09/02/2020 19:23 INDICATION: Gestational hypertension, third trimester TECHNIQUE: Real-time pelvic ultrasound was performed. The interpreting radiologist was not present fo r the study. COMPARISON: 08/12/2020 FINDINGS: There is a single living fetus in vertex presentation. The placenta is right/fundal. heart rate is 133 beats per minute (bpm). Biophysical profile performed by the technologist: breathing (30 sec sustained breathing in 30 minutes): 0 out of 2 movement (3 gross body movements in 30 minutes): 2 out of 2 tone (one episode of ukcwqjq-ishhfkjlx-iyznnpm limb movement): 2 out of 2 Amniotic fluid pocket (2 cm): 2 out of 2 Total score: 6 out of 8 IMPRESSION: 1. Single living fetus in vertex presentation. 2. Biophysical profile 6 out of 8. Sustained breathing not observed. Reviewed, dictated and finalized at location A.
--- NOTE | 2020-09-06 16:06 | PC.NURSE ---
Dr. Edwards called and ordered BPP only. No NST needed.
== END 2020-09-21 07:43 | disposition home or self-care (01) ==
LOC: ANHOBOP 16:05
PROVIDERS: PCP Internal Medicine Geriatric Medicine; Visit Provider Obstetrics & Gynecology Gynecology
DX: O14.93 Unspecified pre-eclampsia, third trimester (principal); Z3A.29 29 weeks gestation of pregnancy; Z3A.30 30 weeks gestation of pregnancy; Z3A.34 34 weeks gestation of pregnancy
CPT/HCPCS: 59025; 76819; A9270

== ENCOUNTER 2020-09-18 16:49 | Inpatient (IN) | payer OTHER, SELFPAY ==
[2020-09-18] VITALS (14 sets, daily range): BP systolic 136–162; BP diastolic 77–99; PULSE 72–91; TEMP 36.5–36.8; BMI 26.9
[2020-09-18] MEDS: LABETALOL HCL 100 MG TABLET 200 MG PO (18:16)
[2020-09-18 18:20] LABS: Basophils Percent Auto 0.5 % (0.2-1.2); Eosinophils Absolute Auto 0.1 K/mm3 (0-0.3); Eosinophils Percent Auto 0.6 % (0-4.4); Hematocrit 33.3 % (37.0-47.0); Hemoglobin 11.6 g/dL (12.0-15.0); Immature Granulocyte Absolute 0.08 K/mm3 (0.00-0.031); Immature Platelet Fraction Pct 18.3 % (0.9-11.2); Lymphocytes Absolute Auto 1.88 K/mm3 (0.9-3.2); Lymphocytes Percent Auto 23.6 % (18.3-44.2); Mean Corpuscular HGB Conc 34.8 g/dl (32-36); Mean Corpuscular Hemoglobin 30.5 pg (26-34); Mean Corpuscular Volume 87.6 fl (80-100); Mean Platelet Volume 13.6 fl (7.4-10.4); Monocytes Absolute Auto 0.7 K/mm3 (0.1-0.6); Monocytes Percent Auto 8.4 % (2.6-8.5); Neutrophils Absolute Auto 5.3 K/mm3 (1.3-6.7); Neutrophils Percent Auto 65.9 % (45.5-73.1); Platelet Count Result 123 k/mm3 (150-375); Red Cell Distribution Width 13.2 % (11.5-14.5)
[2020-09-18] MEDS: DINOPROSTONE 10 MG VAG INSERT VAGINAL (18:25)
--- NOTE | 2020-09-18 18:25 | LDADM ---
This patient, Rosibel Jimenez, was admitted to Labor/Delivery/Recovery 107 on 09/18/20 at 16:49. Plans for labor, pain management and were discussed with patient. Patient/family oriented to hospital policies and general routines including ID bracelet, bed and alarms, visiting hours, pain management, procedures, bathroom and other care routines, personal items, smoking policy, room service/diet and guest tray routines, infant security routines, and visiting hours. Patient/Family are encouraged to report perceived risks to care and to ask questions if they do not understand what they are told or what they should do. See OBIX for further documentation.
[2020-09-18 18:28] LABS: Alanine Aminotransferase 32 U/L (4-35); Albumin Level 3.4 g/dL (3.5-5.1); Alkaline Phosphatase 199 U/L (38-126); Anion Gap 8 mmol/L (8-16); Aspartate Amino Transferase 38 U/L (14-36); Bilirubin,Total 0.2 mg/dL (0.2-1.3); Blood Urea Nitrogen 14 mg/dL (7-17); Calcium 8.4 mg/dL (8.4-10.2); Carbon Dioxide 19 mmol/L (22-30); Chloride 109 mmol/L (98-107); Estimated Glomerular Filt Rate > 60; Glucose 102 mg/dL (65-105); Potassium 3.9 mmol/L (3.4-5.0); Sodium 136 mmol/L (137-145); Uric Acid 8.3 mg/dL (2.5-7.5)
[2020-09-18] MEDS: NIFEdipine 30 MG TAB.ER.24 60 MG PO (23:30)
[2020-09-19] VITALS (218 sets, daily range): BP systolic 107–174; BP diastolic 67–100; PULSE 55–162; TEMP 36.2–36.9; O2SAT 86–100
[2020-09-19] MEDS: LABETALOL HCL 100 MG TABLET 200 MG PO ×4 (00:53→18:20)
[2020-09-19] MEDS: OXYTOCIN 30 UNITS/NS 500 ML 30 UNITS/500 ML BAG 6 UNITS IV CONT (06:48)
[2020-09-19] MEDS: LACTATED RINGERS 1,000 ML 125 ML IV CONT ×3 (06:48→20:19)
[2020-09-19 07:58] LABS: Rapid Plasma Reagin Non-Reactive (NonReactive)
[2020-09-19] MEDS: NIFEdipine 30 MG TAB.ER.24 PO (09:36)
--- NOTE | 2020-09-19 09:47 | WPDOBADMIT ---
Obstetrics - Admit Note Admission Note: record reviewed. No pertinent additions to the history and/or any subsequent changes in the physical findings that are not consistent with the expected course of the were found. Additions to the history and/or subsequent changes in the physical findings follow. Here for MIL at 37 2/7 wks for preeclampsia. Cervadil last pm and now low dose pitocin. Cervix /-3 AROM with clear fluid. FHTs reassuring
--- NOTE | 2020-09-19 13:07 | WPDANESEPP ---
Anes - Eval Pre Procedure Procedure: labor epidural Date/Time: 09/19/20 13:07 Preop Diagnosis: labor pain Pre Op Diagnosis: Induction of Labor Patient Data Age: 29 Gender: F Height: 5 ft 3 in Weight: 69 kg Last Vital Signs Temp 36.2 C L 09/19/20 11:30 Pulse 76 09/19/20 12:44 BP 145/86 H 09/19/20 12:31 Allergies Allergy/AdvReac Type Severity Reaction Status Date / Time No Known Allergies Allergy Verified 08/30/20 16:49 Home Medications Medication Instructions Recorded Confirmed Type aspirin 81 mg PO DAILY 07/11/20 09/18/20 History Gummies 1 tablet PO BID 08/12/20 09/18/20 History labetalol 200 mg PO Q6HR tablet 08/31/20 09/18/20 Rx [id number]-xlbdbjdtqyjtb-nazr 1 - 2 cap PO Q4H PRN 09/18/20 09/18/20 History nifedipine [Procardia XL] 30 mg PO DAILY 09/18/20 09/18/20 History nifedipine [Procardia XL] 60 mg PO HS 09/18/20 09/18/20 History Laboratory Tests 09/18/20 09/18/20 09/18/20 17:54 17:54 17:55 WBC 8.0 K/mm3 K/mm3 (4.5-10.0) RBC 3.80 M/mm3 L M/mm3 (4.2-5.4) Hgb 11.6 g/dL L g/dL (12.0-15.0) Hct 33.3 % L % (37.0-47.0) MCV 87.6 fl fl (80-100) MCH 30.5 pg pg (26-34) MCHC 34.8 g/dl g/dl (32-36) RDW 13.2 % % (11.5-14.5) Plt Count 123 k/mm3 L k/mm3 (150-375) MPV 13.6 fl H fl (7.4-10.4) Immature Gran % (Auto) 1.0 % H % (0-0.5) Neut % (Auto) 65.9 % % (45.5-73.1) Lymph % (Auto) 23.6 % % (18.3-44.2) Clinch % (Auto) 8.4 % % (2.6-8.5) Eos % (Auto) 0.6 % % (0-4.4) Baso % (Auto) 0.5 % % (0.2-1.2) Lymph # (Auto) 1.88 K/mm3 K/mm3 (0.9-3.2) Clinch # (Auto) 0.7 K/mm3 H K/mm3 (0.1-0.6) Eos # (Auto) 0.1 K/mm3 K/mm3 (0-0.3) Baso # (Auto) 0.0 K/mm3 K/mm3 (0.0-0.1) Abs Immat Gran (auto) 0.08 K/mm3 H K/mm3 (0.00-0.031) Absolute Neuts (auto) 5.3 K/mm3 K/mm3 (1.3-6.7) Absolute Nucleated RBC 0.0 K/mm3 K/mm3 (0.0-0.012) Nucleated RBC % 0.0 % % (0.0-0.2) % Immature Plt Fraction 18.3 % H % (0.9-11.2) Sodium 136 mmol/L L mmol/L (137-145) Potassium 3.9 mmol/L mmol/L (3.4-5.0) Chloride 109 mmol/L H mmol/L (98-107) Carbon Dioxide 19 mmol/L L mmol/L (22-30) Anion Gap 8 mmol/L mmol/L (8-16) BUN 14 mg/dL D mg/dL (7-17) Creatinine 0.80 mg/dL mg/dL (0.7-1.0) Estim Creat Clear Calc Not Reportable Estimated GFR > 60 (59 - ) Glucose 102 mg/dL mg/dL (65-105) Uric Acid Cancelled 8.3 mg/dL H mg/dL (2.5-7.5) Calcium 8.4 mg/dL mg/dL (8.4-10.2) Total Bilirubin 0.2 mg/dL mg/dL (0.2-1.3) AST 38 U/L H U/L (14-36) ALT 32 U/L U/L (4-35) Alkaline Phosphatase 199 U/L H U/L (38-126) Total Protein 7.0 g/dL g/dL (6.3-8.2) Albumin 3.4 g/dL L g/dL (3.5-5.1) RPR Blood Type Antibody Screen 09/18/20 09/18/20 17:55 17:55 WBC RBC Hgb Hct MCV MCH MCHC RDW Plt Count MPV Immature Gran % (Auto) Neut % (Auto) Lymph % (Auto) Clinch % (Auto) Eos % (Auto) Baso % (Auto) Lymph # (Auto) Clinch # (Auto) Eos # (Auto) Baso # (Auto) Abs Immat Gran (auto) Absolute Neuts (auto) Absolute Nucleated RBC Nucleated RBC % % Immature Plt Fraction Sodium Potassium Chloride Carbon Dioxide Anion Gap BUN Creatinine Estim Creat Clear Calc Estimated GFR Glucose Uric Acid Calcium Total Bilir
[2020-09-19] MEDS: ONDANSETRON INJ 4 MG/2 ML VIAL IV PUSH (13:16)
[2020-09-19] MEDS: SODIUM CHLORIDE 0.9% IV 300 ML 400 ML I-UTERINE (16:47)
[2020-09-19] MEDS: NIFEdipine 30 MG TAB.ER.24 60 MG PO (21:15)
[2020-09-20] VITALS (123 sets, daily range): BP systolic 112–168; BP diastolic 70–132; PULSE 59–111; RESP 14–18; TEMP 36.4–37.3; O2SAT 88–100
[2020-09-20] MEDS: LABETALOL HCL 100 MG TABLET 200 MG PO (00:07)
--- NOTE | 2020-09-20 03:27 | PM.IMHP ---
H&P: HPI History of Present Illness Date/Time: 09/20/20 03:27 Chief Complaint: intolerance of labor Narrative: 29 yo A2 at 37 2/7 wks admitted for MIL for preeclampsia. Patient with slow but steady progress of labor to now 6 cm for past hour. FHTs throughout day have been category II for most of day with occ late decels that resolved with conservative measures. Variability is now minimal and run of late decels not responding to O2 or position change. Discussed with patient and will proceed with csection for intolerance of labor. [facility] Past Medical History Medical History (Updated 09/20/20 @ 03:36 by Felisha Edwards MD) heart deceleration History of spontaneous x 2 D&C x 1 Migraine Pre-eclampsia affecting , antepartum Family History Family History (Updated 09/18/20 @ 19:04 by Joyce Chaney RN) Father Hypertension Social History Social History Smoking status: Never smoker Substance use: never Spiritual care concerns: No Meds Home Medications and Allergies Home Medications Medication Instructions Recorded Confirmed Type aspirin 81 mg PO DAILY 07/11/20 09/18/20 History Gummies 1 tablet PO BID 08/12/20 09/18/20 History labetalol 200 mg PO Q6HR tablet 08/31/20 09/18/20 Rx [id number]-[id number]-nrso 1 - 2 cap PO Q4H PRN 09/18/20 09/18/20 History nifedipine [Procardia XL] 30 mg PO DAILY 09/18/20 09/18/20 History nifedipine [Procardia XL] 60 mg PO HS 09/18/20 09/18/20 History Allergies Allergy/AdvReac Type Severity Reaction Status Date / Time No Known Allergies Allergy Verified 08/30/20 16:49 Vital Signs Vital Signs - 24 hr 09/19/20 03:31 09/19/20 04:01 09/19/20 04:31 Temperature Pulse Rate 79 76 75 Blood Pressure 151/96 H 152/90 H 160/91 H Pulse Oximetry 09/19/20 05:01 09/19/20 05:31 09/19/20 05:39 Temperature 98 F Pulse Rate 74 80 Blood Pressure 157/90 H 161/92 H Pulse Oximetry 09/19/20 06:55 09/19/20 08:29 09/19/20 08:31 Temperature Pulse Rate 80 77 79 Blood Pressure 122/67 122/68 Pulse Oximetry 09/19/20 09:01 09/19/20 09:31 09/19/20 09:38 Temperature 98.5 F Pulse Rate 72 75 Blood Pressure 133/83 132/84 Pulse Oximetry 09/19/20 10:01 09/19/20 10:31 09/19/20 11:01 Temperature Pulse Rate 77 83 70 Blood Pressure 125/73 132/76 136/69 Pulse Oximetry 09/19/20 11:30 09/19/20 11:31 09/19/20 12:01 Temperature 97.2 F L Pulse Rate 79 77 Blood Pressure 136/79 140/83 Pulse Oximetry 09/19/20 12:31 09/19/20 12:44 09/19/20 13:40 Temperature Pulse Rate 76 76 Blood Pressure 145/86 H Pulse Oximetry 99 09/19/20 13:43 09/19/20 13:45 09/19/20 13:50 Temperature Pulse Rate 90 Blood Pressure 130/86 Pulse Oximetry 98 98 09/19/20 13:55 09/19/20 13:57 09/19/20 14:00 Temperature Pulse Rate 71 62 Blood Pressure 113/83 119/80 Pulse Oximetry 98 99 09/19/20 14:01 09/19/20 14:02 09/19/20 14:03 Temperature Pulse Rate 69 74 77 Blood Pressure 132/88 137/87 133/86 Pulse Oximetry 09/19/20 14:05 09/19/20 14:06 09/19/20 14:08 Temperature Pulse Rate 79 75 Blood Pressure 133/85 130/81 Pulse Oximetry 99 09/19/20 14:10 09/19/20 14:11 09/19/20 14:13 Temperature Pulse Rate 81 80 Blood Pressure 127/84 121/79 Pulse Oximetry 99 09/19/20 14:15 09/19/20 14:16 09/19/20 14:18 Temperature Pulse Rate 82 82 Blood Pressure 113/72 118/72 Pulse Oximetry 97 09/19/20 14:20 09/19/20 14:22 09/19/20 14:23 Temperature Pulse Rate 83 79 Blood Pressure 112/71 116/72 Pulse Oximetry 97 09/19/20 14:25 09/19/20 14:26 09/19/20 14:28 Temperature Pulse Rate 82 86 Blood Pressure 120/80 118/69 Pulse Oximetry 99 09/19/20 14:30 09/19/20 14:31 09/19/20 14:34 Temperature Pulse Rate 86 83 Blood Pressure 119/73 125/68 Pulse Oximetry 99 09/19/20 14:35 09/19/20 14:40 09/19/20 14:45
--- NOTE | 2020-09-20 03:38 | WPDHPUPDATE1 ---
History and Physical Update Update Date/Time: 09/20/20 03:38 History and Physical has been reviewed, including an updated exam of the patient. There are NO changes in the patient's condition. Risks, benefits, and alternatives have been discussed and questions answered. Patient agrees to proceed with procedure.
--- NOTE | 2020-09-20 04:26 | P.OP_ITS ---
Procedure Note - Detailed Date of Procedure 09/20/20 Pre-op Diagnosis Induction of Labor Intrauterine at 37 and 2/7 weeks preeclampsia intolerance of labor Post-op Diagnosis same Procedure Performed primary low transverse Caesarean section Surgeon Felisha Edwards MD Anesthesia epidural Findings male in the left occiput posterior position with a very long cord and a true knot that was tight weighing 5 lb 7 oz with Apgars of 3 at 1minute 6 at 5minutes and 9 at 10minutes; Thick meconium noted at uterine incision;normal- appearing tubes ovaries and uterus Description of Procedure the patient was taken to the operating room and placed in the dorsal lithotomy position with a leftward tilt under epidural anesthesia. She was prepped and draped in the usual sterile fashion. Once anesthesia was deemed adequate a Pfannenstiel skin incision was made with a scalpel and carried down to the fascia which was nicked in the midline with the scalpel. The incision is extended laterally using Verdugo scissors. Ochsner was used to tent the fascia which was then dissected off using sharp and blunt dissection. The rectus muscles are in the midline and the peritoneum tented and entered with Metzenbaum scissors. The peritoneal incision is extended with blunt traction. The bladder blade is placed and the vesicouterine peritoneum grasped with a Peon. Bladder flap was created using Metzenbaum was and blunt traction. The bladder blade was replaced and the lower uterine segment incised in a transverse fashion with a scalpel. Incision is extended laterally using blunt traction. A large loop of cord delivered through the incision and could not be reduced. The infant's head was brought up into the incision and delivered while the chef's assistant applied fundal pressure. The cord was clamped and cut and the infant handed to the waiting OB nurse and filter tip inspector. the placenta it is removed using manual traction. The uterus was cleared of all clots and debris and exteriorized. The uterine incision was closed using 0 Monocryl in a running locked fashion. Same suture was used to imbricate. Good hemostasis is noted. The cul-de-sac is irrigated and the uterus is returned to the abdomen. The gutters are irrigated and the uterine incision is again inspected and noted to be hemostatic. Fascia was closed using 0 Vicryl in a running fashion. Subcutaneous tissues are irrigated and made hemostatic using Bovie cautery. The skin is closed using 4 0 Vicryl in a subcuticular fashion and Dermaflex was placed over the incision. Sponge, needle, and instrument counts are correct per the OR staff. The patient is taken to recovery in stable condition. Estimated Blood Loss 740 Urine Output 250 Drains Yes (aguirre) Packing No Pathology yes (placenta) Complications No immediate complications Condition stable Disposition floor
--- NOTE | 2020-09-20 04:33 | PM.OBDSVD ---
DS: Admitting Diagnosis Admitting Diagnosis Admitting Diagnosis: Intrauterine at 37 and 2/7 weeks preeclampsia medical induction of labor with intolerance of labor primary section DS: Discharge Diagnosis Discharge Diagnosis (1) delivery delivered: Code(s): O82 - Encounter for delivery without indication Status: Acute (2) Pre-eclampsia affecting , antepartum: Code(s): O14.90 - Unspecified pre-eclampsia, unspecified trimester Status: Acute OB - DS: Summary OB Procedures : NST, PIH Mgmt and Ultrasound OB Procedures Intrapartum: low cervical, transverse OB Procedures: : None Peripartum Data Delivery Method: Section Procedures: Procedures Operation Date: 09/20/20 03:30 <No data on this case meets the specified criteria> complications: none Status at Discharge Functional status at discharge: independent ambulation Overall status at discharge: patient is progressing back to baseline Time Spent with Patient Time attestation: Total time spent providing and/or coordinating discharge services: DS: Data Data Completed and Pending Labs on day of discharge: Labs from last 24 hours 09/18/20 17:55 RPR Non-reactive Discharge Plan Discharge Attending physician on discharge: Felisha Edwards Discharging Clinician: Felisha Edwards Anticipated Discharge Date/Time: 09/23/20 04:34 Patient Disposition: Home, Self-Care Activity: may shower, may drive after 2 weeks and pelvic rest Diet: regular Discharge Instructions: Education: Mom and Baby Guide Given to: Mother Follow-Up: Call your delivering provider's office for an appointment to be seen in: 1 Week Mom and baby should come to the [facility] for the follow-up appointment. Appointment Date/Time: September 24, 2020 at 8:00 am What to expect at your follow-up visit: Blood Pressure Check Physical Assessment Call [phone] if you are unable to keep your appointment time. BREAST CARE: * Wear a snug supportive bra. * For engorgement discomfort: Breast Feeding: * Apply warm moist washcloths * Express milk as needed to relieve engorgement * Wear loose clothing * For sore nipples: * Identify correct latch-on * Apply warm moist washcloths before and after nursing * Air dry nipples after nursing * May apply Lansinoh cream to nipples ABDOMINAL INCISION: (if applicable) * Allow incision to air dry * Do NOT use lotions for powders on your incision * When showering, allow soap and water to run over the incision, but do not wash incision EPISIOTOMY/PERINEAL CARE: * Until bleeding stops, use your alexa bottle after urinating * Change your pad frequently throughout the day * No tub baths until seen by your physician - You may shower ACTIVITY: * Rest as much as possible. * Do not exercise or lift anything heavier than your baby (such as laundry or other children.) * Avoid stairs or driving as much as possible. * Do not put anything into the vagina. No douching, tampons, or sexual activity until seen by physician. NOTIFY PHYSICIAN IF YOU HAVE ANY QUESTIONS OR IF ANY OF THE FOLLOWING SYMPTOMS OCCUR: * If your incision becomes red, swollen, or more painful than what you have experienced in the hospital. * If your vaginal bleeding becomes foul smelling. * If your vaginal bleeding becomes more heavy than a period or if your bleeding changes from pink to bright red. However, you may pass an occasional walnut-sized clot once or twice for the first week . * If you experience a sharp, shooting pain in you calves. * If you discover a hard, reddened area on your breast or if you experience flu-like symptoms. DIET: * Eat regular, well-balanced meals. * Drink plenty of fluids daily. If breastfeed
--- NOTE | 2020-09-20 11:20 | PC.NURSE ---
Mother called out for assist with feeding. Mother reports first feeding was eager latching without issue. Reviewed infant feeding cues, frequencies, duration of feedings, feeding elimination flow sheet, and signs of adequate intake. Demonstrated stimulation techniques to wake for feeding. Assisted with infant to breast. Reviewed positioning/alignment in cross cradle, holding breast in ?U? hold and guided asymmetrical latch on. able to latch correctly. Infant nursed eagerly, with steady draws and frequent swallowing noted. Reviewed signs of a correct latch, effective nursing and suck swallow ratio. Infant would slip to shallow latch, mother reports tenderness. Demonstrated how to adjust latch more deeply while feeding. Mother reports she can feel change in latch and has no tenderness. Nipple care reviewed of lanolin after feedings, warm compresses and gel pads as needed. Suggested mother stimulate while feeding to increase stimulate, increase intake and to assist with maintaining deep latch. Instructed mother to call out for RN assistance if she is unable to latch for feeding or she has discomfort with nursing. Instructed feeding should be initiated three hours from start of last feeding or if feeding cues are noted before. Mother voiced understanding of information shared. Discussed and the 37 week , establishing may have its own unique set of circumstances due to their immaturity. infants may be less alert, have less stamina and may have issues with latch, suck and swallow. With the possible inability to have a vigorous suck swallow, infants may not be adequately stimulating mother and/or able to have adequate milk transfer. Pumping may be considered for additional stimulation and to offer EBM as part of supplement as needed if unable to effectively feed.
[2020-09-20] MEDS: NIFEdipine 30 MG TAB.ER.24 PO (11:53)
[2020-09-20] MEDS: KETOROLAC 30 MG/ML VIAL (*BKC) IV PUSH (12:05)
[2020-09-20] MEDS: LABETALOL HCL 100 MG TABLET PO ×2 (16:50→22:02)
[2020-09-20] MEDS: DOCUSATE SODIUM 100 MG CAPSULE PO (16:54)
[2020-09-20] MEDS: SIMETHICONE 80 MG TAB.CHEW PO (16:54)
[2020-09-20] MEDS: HYDROcodone/acetaminophen (*CRX) 5-325 MG TABLET 1 TAB PO ×2 (16:55→22:02)
[2020-09-20] MEDS: IBUPROFEN 600 MG TABLET PO (22:05)
[2020-09-21] VITALS (12 sets, daily range): BP systolic 121–158; BP diastolic 74–97; PULSE 81–91; RESP 15–18; TEMP 36.8–37; O2SAT 95–98; BMI 25.4
[2020-09-21] MEDS: IBUPROFEN 600 MG TABLET PO ×3 (04:29→20:21)
[2020-09-21] MEDS: HYDROcodone/acetaminophen (*CRX) 5-325 MG TABLET 1 TAB PO ×5 (04:30→20:20)
[2020-09-21 05:18] LABS: Basophils Percent Auto 0.2 % (0.2-1.2); Eosinophils Percent Auto 0.1 % (0-4.4); Hematocrit 27.5 % (37.0-47.0); Hemoglobin 9.3 g/dL (12.0-15.0); Immature Granulocyte Absolute 0.14 K/mm3 (0.00-0.031); Immature Granulocyte Percent A 0.8 % (0-0.5); Immature Platelet Fraction Pct 15.6 % (0.9-11.2); Lymphocytes Absolute Auto 1.66 K/mm3 (0.9-3.2); Mean Corpuscular HGB Conc 33.8 g/dl (32-36); Mean Corpuscular Hemoglobin 30.8 pg (26-34); Mean Corpuscular Volume 91.1 fl (80-100); Mean Platelet Volume 13.1 fl (7.4-10.4); Monocytes Absolute Auto 0.7 K/mm3 (0.1-0.6); Monocytes Percent Auto 3.9 % (2.6-8.5); Neutrophils Absolute Auto 15.9 K/mm3 (1.3-6.7); Platelet Count Result 110 k/mm3 (150-375); Red Blood Count 3.02 M/mm3 (4.2-5.4); Red Cell Distribution Width 13.7 % (11.5-14.5); White Blood Count 18.4 K/mm3 (4.5-10.0)
[2020-09-21] MEDS: LABETALOL HCL 100 MG TABLET PO ×3 (06:46→22:05)
--- NOTE | 2020-09-21 07:25 | WPDANLDPN2 ---
Anes-Prog Note L&D Date/Time: 09/21/20 07:25 Comfortable throughout: labor and section Neuraxial method: epidural Epidural/Spinal procedure site: clean & non-tender Neuro status: Neuro function grossly intact. Cardiovascular status: normal Respiratory status: normal Airway patency: baseline Mental status: baseline Post-Op hydration status: normal Vital Signs: Last Vital Signs Temp 37.0 C 09/21/20 06:49 Pulse 81 09/21/20 06:49 Resp 16 09/21/20 06:49 BP 145/90 H 09/21/20 06:49 Pulse Ox 95 09/21/20 06:49 Pain score (VAS): 3 I/O: Intake & Output 09/20/20 09/20/20 09/21/20 15:59 23:59 07:59 Intake Total 500 1500 1000 Output Total 775 9210 1450 Balance -666 -[phone] -493 Post-procedural complaints: none Patient feedback: Patient satisfied with anesthetic care.
--- NOTE | 2020-09-21 07:25 | WPDANLDNPN2 ---
Anes-Prog Note L&D-Neuraxial Date/Time: 09/21/20 07:25 Neuraxial medications: epidural PF morphine Opiod-related complaints: none Patient feedback: Patient satisfied with post-operative pain management.
--- NOTE | 2020-09-21 07:45 | PM.OBPNVD ---
OB - PN: Subj Subjective Date/time seen: 09/21/20 07:45 doing okay no complaints OB - PN: Obj Data Labs CBC & Chem 7: 09/21/20 04:43 09/18/20 17:54 Labs: Laboratory Results - last 24 hr 09/21/20 04:43 WBC 18.4 H RBC 3.02 L Hgb 9.3 L Hct 27.5 L MCV 91.1 MCH 30.8 MCHC 33.8 RDW 13.7 Plt Count 110 L MPV 13.1 H Immature Gran % (Auto) 0.8 H Neut % (Auto) 86.0 H Lymph % (Auto) 9.0 L [place] % (Auto) 3.9 Eos % (Auto) 0.1 Baso % (Auto) 0.2 Lymph # (Auto) 1.66 [place] # (Auto) 0.7 H Eos # (Auto) 0.0 Baso # (Auto) 0.0 Abs Immat Gran (auto) 0.14 H Absolute Neuts (auto) 15.9 H Absolute Nucleated RBC 0.0 Nucleated RBC % 0.0 % Immature Plt Fraction 15.6 H OB - PN A/P Assessment and Plan (1) delivery delivered: Code(s): O82 - Encounter for delivery without indication Status: Acute Assessment and Plan: continue with pp car (2) Pre-eclampsia affecting , antepartum: Code(s): O14.90 - Unspecified pre-eclampsia, unspecified trimester Status: Acute Assessment and Plan: continue to monitor bps. Time Spent With Patient Time: Total time spent is greater than 50% in coordination of care (as documented) at patient's floor/unit and/or counseling patient: Exam Narrative: Exam Narrative: incision c/d/i ff below umbilicus
[2020-09-21] MEDS: POLYSACCHARIDE IRON COMPLEX 150 MG CAPSULE PO ×2 (08:54→17:05)
[2020-09-21] MEDS: DOCUSATE SODIUM 100 MG CAPSULE PO ×2 (08:54→17:05)
[2020-09-21] MEDS: MULTIVIT/MIN/PREN/FOL AC/IRON TABLET 1 TAB PO (08:54)
[2020-09-22] VITALS (9 sets, daily range): BP systolic 136–153; BP diastolic 77–96; PULSE 70–84; RESP 16–20; TEMP 36.6–36.9; O2SAT 98–99
[2020-09-22] MEDS: HYDROcodone/acetaminophen (*CRX) 5-325 MG TABLET 1 TAB PO ×4 (04:43→20:58)
[2020-09-22] MEDS: IBUPROFEN 600 MG TABLET PO ×3 (04:44→20:57)
[2020-09-22] MEDS: LABETALOL HCL 100 MG TABLET PO ×3 (09:00→21:55)
[2020-09-22] MEDS: DOCUSATE SODIUM 100 MG CAPSULE PO ×2 (09:06→18:32)
[2020-09-22] MEDS: POLYSACCHARIDE IRON COMPLEX 150 MG CAPSULE PO ×2 (09:06→18:32)
[2020-09-22] MEDS: MULTIVIT/MIN/PREN/FOL AC/IRON TABLET 1 TAB PO (09:06)
--- NOTE | 2020-09-22 14:30 | PC.NURSE ---
Mother called out for assist with feeding. Mother reports infant is supplemented 30 mls after each feeding by ICP request. Mother states she does not give 30 mls, suggested to increase to amount requested. Reviewed feeding cues, frequencies, duration of feedings, feeding elimination flow sheet, and signs of adequate intake. Demonstrated stimulation techniques to wake infant for feeding. Assisted with infant to breast. Reviewed positioning/alignment in cross cradle, holding breast in ?U? hold and guided asymmetrical latch on. Mother was able to latch correctly. nursed eagerly, with steady draws and frequent swallowing noted. Reviewed signs of a correct latch, effective nursing and suck swallow ratio. Infant would slip to shallow latch, and roll bottom lip in, mother reports tenderness. Demonstrated how to adjust latch more deeply while feeding and roll out lip. Mother reports she can feel change in latch and has no tenderness. Nipple care reviewed of lanolin after feedings, warm compresses and gel pads as needed. Suggested mother stimulate while feeding to increase stimulate, increase intake and to assist with maintaining deep latch. Instructed mother to call out for RN assistance if she is unable to latch for feeding or she has discomfort with nursing. Instructed feeding should be initiated three hours from start of last feeding or if feeding cues are noted before. Mother voiced understanding of information shared.
--- NOTE | 2020-09-22 17:42 | PC.NURSE ---
Pt denies headache, blurry vision, epigastric pain, DTR's normal bilaterally.
[2020-09-23] MEDS: HYDROcodone/acetaminophen (*CRX) 5-325 MG TABLET 1 TAB PO ×3 (00:35→11:47)
[2020-09-23 00:37] VITALS: BP 137/77; PULSE 66; RESP 16; TEMP 36.7; O2SAT 98
[2020-09-23 05:30] VITALS: BP 155/90; PULSE 86; RESP 16; O2SAT 98
[2020-09-23] MEDS: IBUPROFEN 600 MG TABLET PO ×2 (05:40→11:46)
[2020-09-23 05:42] VITALS: PULSE 86
[2020-09-23] MEDS: LABETALOL HCL 100 MG TABLET PO (05:42)
[2020-09-23] MEDS: MULTIVIT/MIN/PREN/FOL AC/IRON TABLET 1 TAB PO (08:32)
[2020-09-23] MEDS: DOCUSATE SODIUM 100 MG CAPSULE PO (08:33)
[2020-09-23] MEDS: POLYSACCHARIDE IRON COMPLEX 150 MG CAPSULE PO (08:33)
[2020-09-23 08:39] VITALS: PULSE 85
[2020-09-23] MEDS: LABETALOL HCL 100 MG TABLET 200 MG PO (08:39)
[2020-09-23 08:40] VITALS: BP 158/90; PULSE 88; RESP 16; TEMP 37.2; O2SAT 98
--- NOTE | 2020-09-23 09:28 | PM.OBPNVD ---
OB - PN: Subj Subjective Date/time seen: 09/23/20 09:28 S: doing well no complaints. denies headache, minimal bleeding. OB - PN: Obj Data Labs CBC & Chem 7: 09/21/20 04:43 09/18/20 17:54 OB - PN A/P Assessment and Plan (1) delivery delivered: Code(s): O82 - Encounter for delivery without indication Status: Acute (2) Pre-eclampsia affecting , antepartum: Code(s): O14.90 - Unspecified pre-eclampsia, unspecified trimester Status: Acute Assessment and Plan: d/c home continue labetalol 200 mg po q8 hours. follow up repeat bp check in / 24-48 hours and in 1 week. Time Spent With Patient Time: Total time spent is greater than 50% in coordination of care (as documented) at patient's floor/unit and/or counseling patient: Exam Narrative: Exam Narrative: inc: clean and dry
--- NOTE | 2020-09-23 10:48 | PC.NURSE ---
Patient viewed the discharge video Mother & Baby Care, The First Two Weeks . Patient was given the opportunity and encouraged to ask questions. Patient verbalized understanding of information shared and has been given the mother/baby guide for home reference.
[2020-09-24 09:00] VITALS: BP 138/88; PULSE 78; RESP 20; TEMP 36.8; O2SAT 100
--- NOTE | 2020-09-26 07:55 | PM.OBPNVD ---
OB - PN: Subj Subjective Date/time seen: 09/22/20 07:55 Patient comments: no complaints and pain well controlled baby status: doing well OB - PN: Obj Data Labs CBC & Chem 7: 09/21/20 04:43 09/18/20 17:54 OB - PN A/P Assessment and Plan (1) Pre-eclampsia affecting , antepartum: Code(s): O14.90 - Unspecified pre-eclampsia, unspecified trimester Status: Acute Assessment and Plan: BP stable; no PIH sx (2) delivery delivered: Code(s): O82 - Encounter for delivery without indication Status: Acute Assessment and Plan: Doing well. Continue care Time Spent With Patient Time: Total time spent is greater than 50% in coordination of care (as documented) at patient's floor/unit and/or counseling patient: Exam Narrative: Exam Narrative: inc c/d/i : Bimanual exam- vagina & uterus: other (Uterus firm, nt @U)
== END 2020-09-23 12:25 | disposition home or self-care (01) | DRG 788 ==
LOC: ANHLDR 09-26 10:56 → ANHOB2 09-26 10:56
PROVIDERS: Obstetrics & Gynecology Gynecology; Admitting Provider Obstetrics & Gynecology; PCP Internal Medicine Geriatric Medicine; Visit Provider Obstetrics & Gynecology
PROC: 10D00Z1 Extraction of Products of Conception, Low, Open Approach (ICD-10-PCS; CPT 59514; principal; 2020-09-20 03:30)
DX: O14.94 Unspecified pre-eclampsia, complicating childbirth (principal); Z37.0 Single live birth; Z3A.37 37 weeks gestation of pregnancy; O77.0 Labor and delivery complicated by meconium in amniotic fluid; O76 Abnormality in fetal heart rate and rhythm complicating labor and delivery; O69.2XX0 Labor and delivery complicated by other cord entanglement, with compression, not applicable or unspecified
CPT/HCPCS: 36415; 80053; 84550; 85025; 85055; 86592; 86850; 86900; 86901; 88307; A9270; J0131; J1100; J1885; J2274; J2370; J2405; J2590; J2795; J7030; J7120

== ENCOUNTER 2021-10-03 00:38 | Day surgery (SDC) | payer OTHER, SELFPAY ==
--- NOTE | 2021-09-22 12:49 | PC.NURSE ---
Report to the Outpatient Waiting Room, entrance under the green pavilion located off [facility], at time _1130_ on date _10/03/21_. OR Time: _1330_. - You and your visitor will be asked a series of questions to screen for COVID 19 for your protection. - Only one visitor is allowed at this time. - The patient visitor is requested to leave or wait in car when not with patient. - A mask is required within the hospital. Patients may have clear liquids (water, carbonated beverages, clear teas, apple juice) until 3 hours prior to surgery with a maximum of 20 ounces. - No food from midnight until time of surgery - Infants may have breast milk until 4 hours before surgery, formula 6 hours prior to surgery. - Children will be allowed to drink immediately following surgery. If applicable, please bring a bottle or sippy cup to assist with drinking. Juice, water, soda, and popsicles are readily available. For infants on formula, please bring formula the day of surgery. Pacifiers are allowed. Take the following medications with a SIP of water the morning of surgery: _none__ Medications to discontinue per physician __supplement 3 days prior____ Date to take last dose Please no make-up, nail wolof, hairspray, perfume, deodorant, or body powder the day of surgery. No jewelry (including any body piercings) or valuables the day of surgery, leave them at home. Please take a shower or bath the night before, or the morning of, surgery with an antibacterial soap. Wear comfortable, loose fitting clothing. Children are encouraged to wear pajamas. - Jewelry must be removed prior to entering the operating room. Rings and piercings that are not removed may be cut off. - The hospital will not accept responsibility for valuables. - Please leave all valuables, including medications, at home the day of surgery. If you are going home after surgery, a licensed lifter/driver must drive you home. - NO public transportation without another adult. - We recommend that an adult stay with you for 24 hours following discharge. - We also recommend that you do not drive, make important decision, drink alcoholic beverages, or take any drugs that were not prescribed by your health care provider for at least 24 hours after your discharge time. For Pediatric surgeries, we recommend two adults accompany the child home (only one inside the building at this time). Follow any additional instructions given to you from your surgeon. If you or anyone in your household have experienced Covid symptoms in the past week, please notify your surgeon or the nurse liaison at the phone number below for possible testing. Telephone instructions given to _patient_and asked if any additional questions and then verbalized understanding. Patient advised to call surgeon office or pre surgery nurse liaison [phone] if any additional questions.
[2021-10-03] VITALS (9 sets, daily range): BP systolic 97–137; BP diastolic 58–93; PULSE 55–90; RESP 10–18; TEMP 36.4–36.6; O2SAT 98–100
--- NOTE | 2021-10-03 11:41 | WPDANESEPPF ---
Anes - Initial Pre Proc Eval Procedure: Operation Date: 10/03/21 13:30 Proposed Procedures p Bilateral Breast Augmentation - Rajesh Zhang MD Date/Time: 10/03/21 11:41 Surgeon: Rajesh Zhang MD Pre Op Diagnosis: Bilateral Micromastia Patient Data Age: 30 Gender: F Height: Weight: 56.7 kg Allergies Allergy/AdvReac Type Severity Reaction Status Date / Time No Known Allergies Allergy Verified 09/20/21 09:01 Home Medications Medication Instructions Recorded Confirmed Type ondansetron HCl 4 mg tablet 4 mg PO Q8H #21 tabs 09/20/21 Rx carisoprodol 350 mg tablet (Soma) 350 mg PO TID PRN muscle pain #21 09/22/21 09/22/21 Rx tabs oxycodone-acetaminophen 5 mg-325 1 tablet PO Q6H PRN pain #30 tabs 09/22/21 09/22/21 Rx mg tablet (Percocet) Patient hx anesthesia problems: none Family hx anesthesia problems: none Results Review: All pre-operative results and documents have been reviewed as part of the pre-operative evaluation. [facility] Past Medical History Medical History delivery delivered heart deceleration History of spontaneous x 2 D&C x 1 Migraine Pre-eclampsia affecting , antepartum Family History Family History Father Hypertension Social History Social History Smoking status: Never smoker Alcohol intake: current Drinks per week: 1 Substance use: never Substance use type: does not use Living arrangements: with family Spiritual care concerns: No Anes - Eval Final PreProcedure Day of Procedure 10/03/21 11:41 Patient weight: normal Heart: regular rate and rhythm Lungs: clear to auscultation Airway: Mallampati scale class II Neurological: alert and oriented Last oral intake: >/= 8 hours ASA classification: I Emergent: no Anesthetic plan: proceed Anesthesia type and monitoring: general LMA and standard monitoring Results Review: All pre-operative results and documents have been reviewed as part of the pre-operative evaluation. Informed Consent: The patient's anesthetic plan and its attendant risks and benefits were discussed with the patient/family/POA. Questions were solicited and answers provided to the satisfaction of the patient/family/POA.
[2021-10-03] MEDS: LACTATED RINGERS 1,000 ML 30 ML IV CONT ×2 (11:45→13:49)
--- NOTE | 2021-10-03 12:20 | WPDHPUPDATE1 ---
History and Physical Update Update Date/Time: 10/03/21 12:20 History and Physical has been reviewed, including an updated exam of the patient. There are NO changes in the patient's condition. Risks, benefits, and alternatives have been discussed and questions answered. Patient agrees to proceed with procedure.
--- NOTE | 2021-10-03 12:21 | W.PM.PROC2 ---
Procedure Note - Detailed Date of Procedure 10/03/21 Pre-op Diagnosis Bilateral Micromastia Post-op Diagnosis Same Procedure Performed Bilateral augmentation mammaplasty Surgeon Rajesh Zhang MD Anesthesia General Findings Bilateral Natrelle smooth saline implants 390 filled to 420. Right Ref# [id number] SN [id number] Left Ref# [id number] SN [id number] Description of Procedure She is here today for bilateral breast augmentation. Previously and again today the risks, benefits, alternatives were discussed in extensive detail. I wanted her to be very realistic about the risks involved as well as expectations. We discussed aftercare and what to monitor for. Made sure answered all of her questions to her satisfaction today and consent was obtained. Marked in the preoperative holding area with their verification. The patient was taken to the operating room placed supine on the operating table. Anesthesia was provided by anesthesiology. A surgical time-out was taken. We cleansed the skin and 1% lidocaine and 0.25% Marcaine with epinephrine was used anesthetize as a field block. She was prepped and draped in a standard sterile fashion. Tegaderm nipple Millan were placed. A 15 blade used to make an incision along the inframammary fold. Dissection was continued at 45 degree angle until the chest wall as identified. I incised the pectoralis major along its inferior border and completely released the inferior border leaving the medial border intact. I created a subpectoral pocket in the appropriate dimensions based on our preoperative planning for the implant. I then copiously irrigated with saline solution and verified a strict hemostasis. Next the use a triple antibiotic and Betadine containing solution to irrigate the pocket. I washed my gloves with the triple antibiotic and Betadine solution. We washed the implant immediately upon opening it with this solution and only opened it when we needed it. The implant was introduced into the pocket and filled using a fill kit to the volumes as above. Having verified positioning of the implant this was closed using 2-0 Vicryl followed by 3-0 Monocryl in a running subcuticular 4-0 Monocryl followed by tissue glue. Fluffs and surgical bra were placed. Patient was awoke and taken to PACU without difficulty. All instrument sponge counts were correct at the end of the case. Estimated Blood Loss 40 Drains No Packing No Pathology None sent Complications No immediate complications Condition Stable Disposition PACU
[2021-10-03] MEDS: TRANEXAMIC ACID 1,000MG/ISO100 1,000 MG/100 ML BAG 200 MG IVPB (12:30)
[2021-10-03] MEDS: ceFAZolin 2 GM/D5W 50 ML 2 GM/50 ML BAG IVPB (12:30)
[2021-10-03] MEDS: NACL 0.9% IRRIG POUR BOTTLE 900 ML, GENTAMICIN SULFATE INJ 160 MG, ceFAZolin 2 GM, POVI... IRRIGATION (12:51)
[2021-10-03] MEDS: fentaNYL CITRATE INJ (*CRX) 100 MCG/2 ML VIAL 25 MCG IV PUSH ×7 (14:05→14:57)
[2021-10-03] MEDS: ONDANSETRON INJ 4 MG/2 ML VIAL IV PUSH (14:07)
[2021-10-03] MEDS: oxyCODONE HCL (*CRX) 5 MG TAB IR PO (15:46)
== END 2021-10-03 16:32 | disposition home or self-care (01) ==
PROVIDERS: PCP Internal Medicine Geriatric Medicine; Visit Provider Surgery Plastic and Reconstructive Surgery
PROC: (CPT 19325; principal; 2021-10-03 13:30)
DX: Z41.1 Encounter for cosmetic surgery (principal); N64.82 Hypoplasia of breast
CPT/HCPCS: 19325; A9270; C1789; J0131; J0690; J1100; J1580; J2250; J2405; J2704; J3010; J7030; J7120